=== PATIENT | female | born 1955 | race Caucasian/White ===

== ENCOUNTER 2021-02-19 20:09 | Emergency (ER) | payer SELFPAY ==
[~2021-02-19] VITALS: Ht 160 cm; Wt 99.0 kg
[2021-02-19] MEDS ORDERED: OXYcodone/APAP 10/325MG TABLET PO ONE (21:00)
[2021-02-19] MEDS ORDERED: OXYcodone/APAP 10/325MG TABLET ONE (21:05)
--- NOTE | 2021-02-19 21:09 | NUR ---
PT REFUSED PAIN MEDS.
[2021-02-19 23:23] VITALS: BP 125/78
== END 2021-02-19 23:39 | disposition home or self-care (01) ==
LOC: ED 23:00
DX: G89.29 Other chronic pain (principal); M25.562 Pain in left knee; M71.22 Synovial cyst of popliteal space [Baker], left knee
CPT/HCPCS: 99284